=== PATIENT | female | born 1985 | race Caucasian/White ===

== ENCOUNTER 2022-06-15 19:00 | Inpatient (IN) | payer OTHER, SELFPAY ==
[2022-06-15 19:28] VITALS: BP 130/84; PULSE 65
[2022-06-15 19:29] VITALS: PULSE 63; O2SAT 97
[2022-06-15 19:50] VITALS: BP 130/84; PULSE 63; PULSE 66; RESP 16; TEMP 36.6; O2SAT 97; O2SAT 98
--- NOTE | 2022-06-15 20:42 | NUR.NOTE ---
Nursing Note: Provider at bedside to discuss plan of care. Dr. Hung Fallon
--- NOTE | 2022-06-15 20:47 | W.PM.OBHPL1 ---
Date of service: 06/15/22 Time of Service: 20:47 Assessment and Plan Assessment and plan (1) GDM (gestational diabetes mellitus), class A1: Status: Acute Assessment and plan: Misoprostol induction. 50mcg dose orally with routine monitoring. Sharyn and I discussed options of Pitocin vs Miso - she preferred miso. Will await routine admit labs Low SD risk and avg PPH risk due to multip status and hx PPH (2) Postmaturity , 40-42 weeks gestation: Status: Acute OB-HPI Labor/Delivery History of Present Illness Reason for Visit: induction Chief Complaint: Scheduled Induction of Labor Indication for Induction: Chronic Maternal Diabetes and Post Date. CINDY Calculator Estimated Delivery Date Method Current WG Current Estimate 06/21/22 Ultrasound #2 39w 1d Other Estimates 06/11/22 LMP (Certain) 40w 4d 06/12/22 Ultrasound #1 40w 3d Comments: working EDC 06/12/2022 based on LMP and early sono History of Present Expected Delivery Route/Plan Induction discussion over past week - she declined last 06/11 - today baseline 105-110 cat 1 NST in office - good finger sticks and stable BP 130's/76-84 - did agree to proceed given constellation of post dates, GDM, chandni baseline. Specific Issues/Plan This sarah reviewed, as was done in office earlier, the inc risk of or maternal issues with induction. Small risk of hyper stim, discomfort, utering tear, intolerance/FHT abnormalities/decels. she is aware that risk of C/Section increased. She has been clear re no interest in epidural. Denies VENEGAS, abd pain, visual changes 10# prior - no SD risk No prior PP hem hx, though did bleed some post SAB in 2013 and PPHem with two subsequent NSVDs Diet controlled GDM - home FS uniformly fasting <95 and PP <120 Today mild ctx - irreg, no ROM GBS neg labs per flow sheet MALA 16 last week Fetus vtx by sono in office 6 hrs ago. Good activity, no ROM, vag d/c. Narrative: as above PFSH All Active Problems (Updated 06/15/22 @ 21:12 by Alexis Boogie) Postmaturity , 40-42 weeks gestation (Acute) GDM (gestational diabetes mellitus), class A1 (Acute) Surgical History (Updated 06/15/22 @ 20:02 by Stacy Rodriguez RN) History of hernia repair Social History Smoking/Tobacco Use Status: Never Smoking risk assessment performed?: Yes Substance use type: does not use Do you feel safe at home: Yes Do you feel safe in your relationship?: Yes History History 8 Para 5 Hx # Term Pregnancies Multiple births Hx # Pregnancies Ectopic pregnancies AB induced Hx Number of Living Children AB spontaneous Meds Allergies and Home Medications Home Medications Medication Instructions Recorded Confirmed Type Unknown [No Known Home Meds] 06/15/22 06/15/22 History Exam Physical Exam Vital signs: Temp Pulse Resp BP Pulse Ox 36.6 C 63 16 130/84 97 06/15/22 19:50 06/15/22 19:50 06/15/22 19:50 06/15/22 19:50 06/15/22 19:50 Detailed Labor and Delivery Exam Dilation: 1 Effacement (%): 50 station: -2 Position: OA Cervix position: anterior Consistency: soft Park Score: Cervical Points Exam 0 1 2 3 Dilation Closed 1-2cm 3-4 cm 5-6cm Effacement 0-30% 40-50% 60-70% 80% Consistency Firm Medium Soft Station -3 -2 -1,0 +1,+2 Position Posterior Mid Anterior PARK Score(Cervical Ripeness Score): 7 Amniotic Membrane Status: Intact Contraction Frequency(min): 10-12 Contraction Intensity: Mild Fetus A Heart Rate Baseline: 105 Monitor Accelerations: 15 X 15 Monitor Decelerations: None Variability: Moderate (6-25 BPM) Presentation: Vertex Categories: Category I Est. Weight: 3900 kg Additional findings Additional findings: Lungs - clear CVS - reg, no murmur Fundal Ht - 40 cm ABD - soft, non-tender no masses - gravid uterus Risk Assessment Risk for Shoulder Dystocia Increased Risk?: No Risk for Post- Hemorrhage At Risk?: Yes Interventions: iron Date/Initials: [facility] [place] 06/15 Risks Reviewed Risks Reviewed Upon Admission: Yes
[2022-06-15] MEDS: miSOPROStol 50 MCG TAB (20:56)
[2022-06-15] MEDS: Normal Saline Flush 10 ML SYR (20:56)
[2022-06-15 21:05] LABS: Source Nasal/Nares
[2022-06-15 21:08] LABS: HCT 35.5 % (36.0-46.0); HGB 11.5 g/dL (11.2-15.7); MCH 25.2 pg (27.0-33.0); MCHC 32.4 % (32.0-36.0); MCV 78 fL (80-95); MPV 12.3 fL (8.0-11.0); Platelet Count 171 10^3/uL (130-400); RBC 4.56 10^6/uL (3.93-5.22); RDW 14.5 % (11.7-14.6); WBC 8.92 10^3/uL (4.4-10.8)
--- NOTE | 2022-06-15 21:18 | NUR.NOTE ---
Nursing Note: Saline lock placed in Right wrist number 18. Dry intact, flushes well
[2022-06-15] MEDS: Acetaminophen 500 MG TAB PO (21:39)
[2022-06-15 21:40] LABS: COVID-19 PCR Negative (Negative)
--- NOTE | 2022-06-15 22:34 | PGE_ITS ---
Date of service: 06/15/22 Time of Service: 22:34 Pelvic Exam Comments: not rechecked Contractions Contraction Frequency(min): q10 Intensity: Mild/Moderate Objective Abnormal lab results 06/15/22 Range/Units 20:57 Hct 35.5 L (36.0-46.0) % MCV 78 L (80-95) fL MCH 25.2 L (27.0-33.0) pg MPV 12.3 H (8.0-11.0) fL Temp Pulse Resp BP Pulse Ox 36.6 C 63 16 130/84 97 06/15/22 19:50 06/15/22 19:50 06/15/22 19:50 06/15/22 19:50 06/15/22 19:50 Laboratory Results WBC 8.92 10^3/uL (4.4-10.8) 06/15/22 20:57 RBC 4.56 10^6/uL (3.93-5.22) 06/15/22 20:57 Hgb 11.5 g/dL (11.2-15.7) 06/15/22 20:57 Hct 35.5 % (36.0-46.0) L 06/15/22 20:57 MCV 78 fL (80-95) L 06/15/22 20:57 MCH 25.2 pg (27.0-33.0) L 06/15/22 20:57 MCHC 32.4 % (32.0-36.0) 06/15/22 20:57 RDW 14.5 % (11.7-14.6) 06/15/22 20:57 Plt Count 171 10^3/uL (130-400) 06/15/22 20:57 MPV 12.3 fL (8.0-11.0) H 06/15/22 20:57 COVID-19 Source Nasal/Nares 06/15/22 20:52 SARS-CoV-2 (PCR) Negative (Negative) 06/15/22 20:52 Patient ABO/Rh B Negative 06/15/22 20:57 Antibody Screen POSITIVE 06/15/22 20:57 Antibody Identification Anti-D 06/15/22 20:57 Objective Narrative Objective Narrative: comfortable non-tender uterus Subjective Interval history since last seen: Just had solid ctx - feeling some pressure on cervix and entire uterus getting firm. No VENEGAS, visual changes, ROM. Good Fmvt FHT - mod variability, baseline ~120-110 Results Hemoglobin/Hematocrit: Hgb 11.5 g/dL (11.2-15.7) 06/15/22 20:57 Hct 35.5 % (36.0-46.0) L 06/15/22 20:57 Abnormal Lab Findings: Abnormal Labs 06/15/22 20:57 Hct 35.5 L MCV 78 L MCH 25.2 L MPV 12.3 H Additional Findings Results: Cont current miso dose. allow snooze/rest/sleep if no labor. Move to [facility] - pt thinking 0400 AM if no labor. Routing vitals/doptones post miso monitoring.
[2022-06-16] VITALS (185 sets, daily range): BP systolic 114–131; BP diastolic 65–88; PULSE 0–125; RESP 16; TEMP 36.6–36.8; O2SAT 97
--- NOTE | 2022-06-16 00:57 | NUR.NOTE ---
Nursing Note: Pt may be off monitor post 2 hours Miso. ENocuraged to sleep and MD will check in by [address] Sachin Fallon
--- NOTE | 2022-06-16 02:02 | NUR.NOTE ---
Pt to be placed on monitor at 0400 in prep to discuss plan of care and use of pitocin to continue IOL prt Dr. Fallon Nursing Note:
--- NOTE | 2022-06-16 04:41 | W.PM.OBNL1 ---
Date of service: 06/16/22 Time of Service: 04:41 Contractions Monitor Mode: External Contraction Frequency(min): 6-8 Contraction Duration(sec): 45 Intensity: Moderate Fetus A Monitor: External (US) Heart Rate Baseline: 120 Presentation: Vertex Variability: Moderate (6-25 BPM) Categories: Category I Decelerations: None Objective Abnormal lab results 06/15/22 Range/Units 20:57 Hct 35.5 L (36.0-46.0) % MCV 78 L (80-95) fL MCH 25.2 L (27.0-33.0) pg MPV 12.3 H (8.0-11.0) fL Temp Pulse Resp BP Pulse Ox 36.7 C 75 16 121/80 97 06/16/22 04:09 06/16/22 04:09 06/15/22 19:50 06/16/22 04:09 06/15/22 19:50 Laboratory Results WBC 8.92 10^3/uL (4.4-10.8) 06/15/22 20:57 RBC 4.56 10^6/uL (3.93-5.22) 06/15/22 20:57 Hgb 11.5 g/dL (11.2-15.7) 06/15/22 20:57 Hct 35.5 % (36.0-46.0) L 06/15/22 20:57 MCV 78 fL (80-95) L 06/15/22 20:57 MCH 25.2 pg (27.0-33.0) L 06/15/22 20:57 MCHC 32.4 % (32.0-36.0) 06/15/22 20:57 RDW 14.5 % (11.7-14.6) 06/15/22 20:57 Plt Count 171 10^3/uL (130-400) 06/15/22 20:57 MPV 12.3 fL (8.0-11.0) H 06/15/22 20:57 COVID-19 Source Nasal/Nares 06/15/22 20:52 SARS-CoV-2 (PCR) Negative (Negative) 06/15/22 20:52 Patient ABO/Rh B Negative 06/15/22 20:57 Antibody Screen POSITIVE 06/15/22 20:57 Antibody Identification Anti-D 06/15/22 20:57 Subjective Interval history since last seen: Slept some, ctx consistently Q6-8. mvmt, no ROM No VENEGAS, visual changes BP stable FHT - baseline 120's, mod variability, accels Discussion re options of second miso dose vs transitioning to pitocin Sharyn prefers pitocin given mild/mod ctx pattern and minimal effect from first miso dose. She is aware of small risks with pit including hyperstim, uterine separation, FHT decels, c/section. Plan: low dose pitocin with routine monitoring. Expect Be on alert for PPHEM: IV in place, active mgmt third stage labor, adequate H/H. Plan to recheck cervix shortly. S. Genereaux Results Hemoglobin/Hematocrit: Hgb 11.5 g/dL (11.2-15.7) 06/15/22 20:57 Hct 35.5 % (36.0-46.0) L 06/15/22 20:57 Abnormal Lab Findings: Abnormal Labs 06/15/22 20:57 Hct 35.5 L MCV 78 L MCH 25.2 L MPV 12.3 H Additional Findings Results: as above
[2022-06-16] MEDS: Lactated Ringers 1,000 ML 125 ML IV ×3 (04:51→21:31)
[2022-06-16] MEDS: Oxytocin/Normal Saline 30 UNIT/500 ML BAG 2 UNITS IV (04:53)
[2022-06-16] MEDS: Normal Saline Flush 10 ML SYR IVP (04:57)
--- NOTE | 2022-06-16 05:06 | W.PM.OBNL1 ---
Date of service: 06/16/22 Time of Service: 05:06 Pelvic Exam Dilation: 1 Effacement (%): 50 station: -2 Position: OA Cervix Position: anterior Consistency: soft Vaginal Exam Presentation: Vertex Objective Abnormal lab results 06/15/22 Range/Units 20:57 Hct 35.5 L (36.0-46.0) % MCV 78 L (80-95) fL MCH 25.2 L (27.0-33.0) pg MPV 12.3 H (8.0-11.0) fL Temp Pulse Resp BP Pulse Ox 36.7 C 75 16 121/80 97 06/16/22 04:09 06/16/22 04:09 06/15/22 19:50 06/16/22 04:09 06/15/22 19:50 Laboratory Results WBC 8.92 10^3/uL (4.4-10.8) 06/15/22 20:57 RBC 4.56 10^6/uL (3.93-5.22) 06/15/22 20:57 Hgb 11.5 g/dL (11.2-15.7) 06/15/22 20:57 Hct 35.5 % (36.0-46.0) L 06/15/22 20:57 MCV 78 fL (80-95) L 06/15/22 20:57 MCH 25.2 pg (27.0-33.0) L 06/15/22 20:57 MCHC 32.4 % (32.0-36.0) 06/15/22 20:57 RDW 14.5 % (11.7-14.6) 06/15/22 20:57 Plt Count 171 10^3/uL (130-400) 06/15/22 20:57 MPV 12.3 fL (8.0-11.0) H 06/15/22 20:57 COVID-19 Source Nasal/Nares 06/15/22 20:52 SARS-CoV-2 (PCR) Negative (Negative) 06/15/22 20:52 Patient ABO/Rh B Negative 06/15/22 20:57 Antibody Screen POSITIVE 06/15/22 20:57 Antibody Identification Anti-D 06/15/22 20:57 Results Hemoglobin/Hematocrit: Hgb 11.5 g/dL (11.2-15.7) 06/15/22 20:57 Hct 35.5 % (36.0-46.0) L 06/15/22 20:57 Abnormal Lab Findings: Abnormal Labs 06/15/22 20:57 Hct 35.5 L MCV 78 L MCH 25.2 L MPV 12.3 H Additional Findings Results: Cervical exam unchanged vs admission Cat 1 NST CTX strong, last 60 min cont pitocin per protocol Enrique Boogie
--- NOTE | 2022-06-16 06:32 | W.PM.OBNL1 ---
Date of service: 06/16/22 Time of Service: 06:32 Objective Abnormal lab results 06/15/22 Range/Units 20:57 Hct 35.5 L (36.0-46.0) % MCV 78 L (80-95) fL MCH 25.2 L (27.0-33.0) pg MPV 12.3 H (8.0-11.0) fL Temp Pulse Resp BP Pulse Ox 36.7 C 75 16 121/80 97 06/16/22 04:09 06/16/22 04:09 06/15/22 19:50 06/16/22 04:09 06/15/22 19:50 Laboratory Results WBC 8.92 10^3/uL (4.4-10.8) 06/15/22 20:57 RBC 4.56 10^6/uL (3.93-5.22) 06/15/22 20:57 Hgb 11.5 g/dL (11.2-15.7) 06/15/22 20:57 Hct 35.5 % (36.0-46.0) L 06/15/22 20:57 MCV 78 fL (80-95) L 06/15/22 20:57 MCH 25.2 pg (27.0-33.0) L 06/15/22 20:57 MCHC 32.4 % (32.0-36.0) 06/15/22 20:57 RDW 14.5 % (11.7-14.6) 06/15/22 20:57 Plt Count 171 10^3/uL (130-400) 06/15/22 20:57 MPV 12.3 fL (8.0-11.0) H 06/15/22 20:57 COVID-19 Source Nasal/Nares 06/15/22 20:52 SARS-CoV-2 (PCR) Negative (Negative) 06/15/22 20:52 Patient ABO/Rh B Negative 06/15/22 20:57 Antibody Screen POSITIVE 06/15/22 20:57 Antibody Identification Anti-D 06/15/22 20:57 Subjective Interval history since last seen: CTX closer - good 60 sec duration FHT - no decels, mod variability, accels noted Eating bkfst, husb here, feeling good. No VENEGAS, good stable BP Uterus palpates strong A: Maternal and well being Induction off to good start - toerating pit so far P: Cont pit - dose to 6 just now Expect S. Genereaux Results Hemoglobin/Hematocrit: Hgb 11.5 g/dL (11.2-15.7) 06/15/22 20:57 Hct 35.5 % (36.0-46.0) L 06/15/22 20:57 Abnormal Lab Findings: Abnormal Labs 06/15/22 20:57 Hct 35.5 L MCV 78 L MCH 25.2 L MPV 12.3 H
--- NOTE | 2022-06-16 06:40 | NUR.NOTE ---
Nursing Note: Blood sugar [address] Fallon request.
--- NOTE | 2022-06-16 15:08 | W.PM.OBNL1 ---
Date of service: 06/16/22 Time of Service: 12:30 Informed Consent Informed Consent: Induction of Labor Pelvic Exam station: -3 Cervix Position: posterior Consistency: soft Vaginal Exam Presentation: Vertex Contractions Monitor Mode: External Contraction Frequency(min): 3 Contraction Duration(sec): 60 Intensity: Moderate Fetus A Monitor: External (US) Heart Rate Baseline: 120 Presentation: Vertex Variability: Moderate (6-25 BPM) Categories: Category I FHR Rhythm: Regular Characteristics: Normal Accelerations: 15 X 15 Decelerations: None Amniotic Membrane Status: Intact Assessment and Plan Assessment and plan (1) Postmaturity , 40-42 weeks gestation: Status: Acute Assessment and plan: Sharyn is now on 16u pitocin, and contractions have increased in intensity. Unfortunately, I cannot reach her cervix which is still quite posterior. She declines AROM. Possible OP baby based on recent contraction pattern. Discussed hands and knees and side lying with frequent position changes. Will continue to increase pit as tolerated. FHT category 1. (2) GDM (gestational diabetes mellitus), class A1: Status: Acute Objective Abnormal lab results 06/15/22 Range/Units 20:57 Hct 35.5 L (36.0-46.0) % MCV 78 L (80-95) fL MCH 25.2 L (27.0-33.0) pg MPV 12.3 H (8.0-11.0) fL Temp Pulse Resp BP Pulse Ox 36.6 C 66 16 125/85 97 06/16/22 12:25 06/16/22 15:06 06/16/22 12:25 06/16/22 14:40 06/16/22 07:28 Laboratory Results WBC 8.92 10^3/uL (4.4-10.8) 06/15/22 20:57 RBC 4.56 10^6/uL (3.93-5.22) 06/15/22 20:57 Hgb 11.5 g/dL (11.2-15.7) 06/15/22 20:57 Hct 35.5 % (36.0-46.0) L 06/15/22 20:57 MCV 78 fL (80-95) L 06/15/22 20:57 MCH 25.2 pg (27.0-33.0) L 06/15/22 20:57 MCHC 32.4 % (32.0-36.0) 06/15/22 20:57 RDW 14.5 % (11.7-14.6) 06/15/22 20:57 Plt Count 171 10^3/uL (130-400) 06/15/22 20:57 MPV 12.3 fL (8.0-11.0) H 06/15/22 20:57 COVID-19 Source Nasal/Nares 06/15/22 20:52 SARS-CoV-2 (PCR) Negative (Negative) 06/15/22 20:52 Patient ABO/Rh B Negative 06/15/22 20:57 Antibody Screen POSITIVE 06/15/22 20:57 Antibody Identification Anti-D 06/15/22 20:57 Vital Signs Reviewed: Yes Subjective Patient Reports: No new Complaints Interval history since last seen: Contractions becoming more intense. Feels baby is well applied. Results Hemoglobin/Hematocrit: Hgb 11.5 g/dL (11.2-15.7) 06/15/22 20:57 Hct 35.5 % (36.0-46.0) L 06/15/22 20:57 Abnormal Lab Findings: Abnormal Labs 06/15/22 20:57 Hct 35.5 L MCV 78 L MCH 25.2 L MPV 12.3 H
--- NOTE | 2022-06-16 15:52 | W.PM.OBNL1 ---
Date of service: 06/16/22 Time of Service: 15:52 Informed Consent Informed Consent: Induction of Labor Pelvic Exam Dilation: 5 Effacement (%): 40 station: -3 Cervix Position: mid Consistency: soft Vaginal Exam Presentation: Vertex Contractions Monitor Mode: External Contraction Frequency(min): 3 Contraction Duration(sec): 60 Intensity: Moderate Fetus A Monitor: External (US) Heart Rate Baseline: 130 Presentation: Vertex Variability: Moderate (6-25 BPM) Categories: Category I FHR Rhythm: Regular Characteristics: Normal Accelerations: 15 X 15 Decelerations: None Amniotic Membrane Status: Intact Assessment Note: No clear SROM but felt no bulging bag, possibly felt hair Assessment and Plan Assessment and plan (1) Postmaturity , 40-42 weeks gestation: Status: Acute Assessment and plan: Doing well, progressed to 40/-3 now. Pitocin on . Good contraction pattern. Will continue as we are for another couple of hours, then consider a break from pitocin for a rest and dinner. Can then restart pitocin unless she is montez on her own. FHT category 1. (2) GDM (gestational diabetes mellitus), class A1: Status: Acute Objective Abnormal lab results 06/15/22 Range/Units 20:57 Hct 35.5 L (36.0-46.0) % MCV 78 L (80-95) fL MCH 25.2 L (27.0-33.0) pg MPV 12.3 H (8.0-11.0) fL Temp Pulse Resp BP Pulse Ox 36.6 C 77 16 125/85 97 06/16/22 12:25 06/16/22 15:50 06/16/22 12:25 06/16/22 14:40 06/16/22 07:28 Laboratory Results WBC 8.92 10^3/uL (4.4-10.8) 06/15/22 20:57 RBC 4.56 10^6/uL (3.93-5.22) 06/15/22 20:57 Hgb 11.5 g/dL (11.2-15.7) 06/15/22 20:57 Hct 35.5 % (36.0-46.0) L 06/15/22 20:57 MCV 78 fL (80-95) L 06/15/22 20:57 MCH 25.2 pg (27.0-33.0) L 06/15/22 20:57 MCHC 32.4 % (32.0-36.0) 06/15/22 20:57 RDW 14.5 % (11.7-14.6) 06/15/22 20:57 Plt Count 171 10^3/uL (130-400) 06/15/22 20:57 MPV 12.3 fL (8.0-11.0) H 06/15/22 20:57 COVID-19 Source Nasal/Nares 06/15/22 20:52 SARS-CoV-2 (PCR) Negative (Negative) 06/15/22 20:52 Patient ABO/Rh B Negative 06/15/22 20:57 Antibody Screen POSITIVE 06/15/22 20:57 Antibody Identification Anti-D 06/15/22 20:57 Vital Signs Reviewed: Yes Subjective Patient Reports: No new Complaints Interval history since last seen: Still with moderate contractions, moving frequently. Results Hemoglobin/Hematocrit: Hgb 11.5 g/dL (11.2-15.7) 06/15/22 20:57 Hct 35.5 % (36.0-46.0) L 06/15/22 20:57 Abnormal Lab Findings: Abnormal Labs 06/15/22 20:57 Hct 35.5 L MCV 78 L MCH 25.2 L MPV 12.3 H
--- NOTE | 2022-06-16 19:09 | W.PM.OBNL1 ---
Date of service: 06/16/22 Time of Service: 19:09 Informed Consent Informed Consent: Induction of Labor Contractions Monitor Mode: Palpation Contraction Frequency(min): 20 Intensity: Mild/Moderate Fetus A Monitor: Doppler Assessment and Plan Assessment and plan (1) Postmaturity , 40-42 weeks gestation: Status: Acute Assessment and plan: Contractions are rare with pitocin off, stopped at 6pm. Will restart at about 8pm. She declined cervical exam at this time. Off monitor while pitocin is off. FHT has been Cat 1 throughout. (2) GDM (gestational diabetes mellitus), class A1: Status: Acute Objective Abnormal lab results 06/15/22 Range/Units 20:57 Hct 35.5 L (36.0-46.0) % MCV 78 L (80-95) fL MCH 25.2 L (27.0-33.0) pg MPV 12.3 H (8.0-11.0) fL Temp Pulse Resp BP Pulse Ox 36.7 C 76 16 130/82 97 06/16/22 17:56 06/16/22 17:58 06/16/22 17:56 06/16/22 17:56 06/16/22 07:28 Laboratory Results WBC 8.92 10^3/uL (4.4-10.8) 06/15/22 20:57 RBC 4.56 10^6/uL (3.93-5.22) 06/15/22 20:57 Hgb 11.5 g/dL (11.2-15.7) 06/15/22 20:57 Hct 35.5 % (36.0-46.0) L 06/15/22 20:57 MCV 78 fL (80-95) L 06/15/22 20:57 MCH 25.2 pg (27.0-33.0) L 06/15/22 20:57 MCHC 32.4 % (32.0-36.0) 06/15/22 20:57 RDW 14.5 % (11.7-14.6) 06/15/22 20:57 Plt Count 171 10^3/uL (130-400) 06/15/22 20:57 MPV 12.3 fL (8.0-11.0) H 06/15/22 20:57 COVID-19 Source Nasal/Nares 06/15/22 20:52 SARS-CoV-2 (PCR) Negative (Negative) 06/15/22 20:52 Patient ABO/Rh B Negative 06/15/22 20:57 Antibody Screen POSITIVE 06/15/22 20:57 Antibody Identification Anti-D 06/15/22 20:57 Vital Signs Reviewed: Yes Subjective Patient Reports: No new Complaints Results Hemoglobin/Hematocrit: Hgb 11.5 g/dL (11.2-15.7) 06/15/22 20:57 Hct 35.5 % (36.0-46.0) L 06/15/22 20:57 Abnormal Lab Findings: Abnormal Labs 06/15/22 20:57 Hct 35.5 L MCV 78 L MCH 25.2 L MPV 12.3 H
[2022-06-16] MEDS: Calcium Carbonate *TUMS* 500 MG CHEW 1000 MG PO (19:17)
--- NOTE | 2022-06-16 21:13 | W.PM.OBNL1 ---
Date of service: 06/16/22 Time of Service: 21:13 Informed Consent Informed Consent: Induction of Labor Objective Temp Pulse Resp BP Pulse Ox 36.7 C 61 16 116/71 97 06/16/22 19:11 06/16/22 21:09 06/16/22 19:11 06/16/22 21:09 06/16/22 19:11 Laboratory Results WBC 8.92 10^3/uL (4.4-10.8) 06/15/22 20:57 RBC 4.56 10^6/uL (3.93-5.22) 06/15/22 20:57 Hgb 11.5 g/dL (11.2-15.7) 06/15/22 20:57 Hct 35.5 % (36.0-46.0) L 06/15/22 20:57 MCV 78 fL (80-95) L 06/15/22 20:57 MCH 25.2 pg (27.0-33.0) L 06/15/22 20:57 MCHC 32.4 % (32.0-36.0) 06/15/22 20:57 RDW 14.5 % (11.7-14.6) 06/15/22 20:57 Plt Count 171 10^3/uL (130-400) 06/15/22 20:57 MPV 12.3 fL (8.0-11.0) H 06/15/22 20:57 COVID-19 Source Nasal/Nares 06/15/22 20:52 SARS-CoV-2 (PCR) Negative (Negative) 06/15/22 20:52 Patient ABO/Rh B Negative 06/15/22 20:57 Antibody Screen POSITIVE 06/15/22 20:57 Antibody Identification Anti-D 06/15/22 20:57 Subjective Interval history since last seen: Pit dose ramping up post 2 hr rest at supper time Resting/comfortable No VENEGAS, visual changes BP's good - stable Palpates strong - freq of ctx increasing as expected She declines cervical check - reasonable given lack of ctx over the past 2 hrs break A: Maternal and well being P: cont induction - inc pit per protocol with goal - adequate ctx q 2-3 min Expect PP Hemm risk - based on hx. S. Genereaux Results Hemoglobin/Hematocrit: Hgb 11.5 g/dL (11.2-15.7) 06/15/22 20:57 Hct 35.5 % (36.0-46.0) L 06/15/22 20:57 Abnormal Lab Findings: Abnormal Labs 06/15/22 20:57 Hct 35.5 L MCV 78 L MCH 25.2 L MPV 12.3 H
[2022-06-17] VITALS (113 sets, daily range): BP systolic 100–123; BP diastolic 56–83; PULSE 50–91; RESP 16; TEMP 36.8–37; O2SAT 90–100; BMI 34.9
--- NOTE | 2022-06-17 01:42 | ANES.PREOP_ITS ---
General Info Date of Service Date Performed: 06/17/22 Height: 5 ft 8 in Weight: 104.326 kg Body Mass Index (BMI): 34.9 Meds Allergies and Home Medications Home Medication Medication Instructions Recorded Unknown [No Known Home Meds] 06/15/22 Current Visit Medications: Current Medications Generic Name Dose Route Start Last Admin Trade Name Freq PRN Reason Stop Dose Admin Acetaminophen 500 mg 06/15/22 21:33 06/15/22 21:39 Acetaminophen 500 Mg Tab PO 500 mg Q4H PRN PRN Administration Citric Acid/Sodium Citrate 30 ml 06/17/22 02:00 Sodium Citrate 30 Ml Cup PO PREOP GIANNI Ringer's Solution 1,000 mls @ 200 mls/hr 06/15/22 20:45 IV INFUSION GIANNI Sodium Chloride 500 mls @ 0 mls/hr 06/15/22 20:42 Saline 500ml Bag IV PRN PRN As Directed Ringer's Solution 1,000 mls @ 125 mls/hr 06/16/22 04:45 06/16/22 21:31 IV 125 mls/hr INFUSION GIANNI Administration Oxytocin/Sodium Chloride 30 unit in 500 mls @ 2 mls/hr 06/16/22 04:45 0 06/17/22 00:45 Pitocin/Normal Saline IV 0 milliunits/min INFUSION GIANNI 0 mls/hr Titration Protocol 2 MILLIUNITS/MIN Ringer's Solution 1,000 mls @ 200 mls/hr 06/17/22 01:45 IV INFUSION GIANNI Azithromycin 500 mg/ Sodium 250 mls @ 250 mls/hr 06/17/22 01:45 Chloride IVPB PREOP GIANNI Cefazolin Sodium/Dextrose 2 gm in 50 mls @ 100 mls/hr 06/17/22 01:45 Ancef Duplex IVPB PREOP GIANNI IV Miscellaneous Supplies 1 each 06/15/22 20:45 Iv Access IV DIRECTED GIANNI Sodium Chloride 0 ml 06/15/22 20:42 06/16/22 04:57 Normal Saline Flush 10 Ml Syr IVP 10 ml PRN PRN Administration Terbutaline Sulfate 0.25 mg 06/15/22 20:42 Terbutaline 1 Mg/Ml Vial SC PRN PRN PFSH Active Problems Active Problems: Problem Status Onset Code Postmaturity , 40-42 weeks gestation O48.0 GDM (gestational diabetes mellitus), class A1 O24.410 Surgical History Surgical History (Updated 06/15/22 @ 20:02 by Stacy Rodriguez RN) History of hernia repair Tobacco Smoking/Tobacco Use Status: Never Substance Use Substance use type: does not use Prental History History 8 Para 5 Hx # Term Pregnancies Multiple births Hx # Pregnancies Ectopic pregnancies AB induced Hx Number of Living Children AB spontaneous Vital Signs and Lab Results Vital Signs Most Recent Vital Signs in EMR: Most Recent Vital Signs Temp Pulse Resp BP Pulse Ox 36.8 C 64 16 123/83 97 06/16/22 23:04 06/17/22 01:41 06/16/22 19:11 06/17/22 01:19 06/16/22 19:11 Point of Care Results Point of Care Results: Finger Stick Blood Glucose 113 06/16/22 06:37 Lab Results 06/15/22 20:57 Blood Type / Crossmatch: Patient ABO/Rh B Negative 06/15/22 Antibody Screen POSITIVE 06/15/22 Complete Blood Count: White Blood Count 8.92 10^3/uL (4.4-10.8) 06/15/22 20:57 Red Blood Count 4.56 10^6/uL (3.93-5.22) 06/15/22 20:57 Hemoglobin 11.5 g/dL (11.2-15.7) 06/15/22 20:57 Hematocrit 35.5 % (36.0-46.0) L 06/15/22 20:57 Platelet Count 171 10^3/uL (130-400) 06/15/22 20:57 Complete Metabolic Panel: No Data to Display Liver Function Panel: No Data to Display Coagulation Panel: No Data to Display Cardiac Panel: No Data to Display Arterial Blood Gas: No Data to Display Venous Blood Gas: No Data to Display Pancreas Panel: No Data to Display Thyroid Panel: No Data to Display Infectious Disease: Coronavirus (COVID-19)(PCR) Negative (Negative) 06/15/22 20:52 Coronavirus 2019 Source Nasal/Nares 06/15/22 20:52 Blood Cultures: No Data to Display Toxicology Panel: No Data to Display Panel: No Data to Display Anesthesia Assessment and Plan Anesthesia History Personal History: No History of Anesthesia Complications Family History: No Family History of Anesthesia Complications Exercise Tolerance Exercise Tolerance: Metabolic Equivalents>4 Pertinent Negatives Pertinent Negatives: No Major Cardiovascular Symptoms or Complaints, No Major Pulmonary Symptoms or Complaints and No History of CVA/TIA Cardiac & Pulmonary Exam Cardiac Exam: Normal S1/S2 Heart Sounds Pulmonary Exam: Clear Bilateral Breath Sounds Implantable Cardiac Device Does patient have a Pacemaker or an ICD?: No Airway Exam Known Difficult Airway: No Mallampati Class: 2 Mouth Opening: Normal (> 3cm) Thyromental Distance: Greater than 3 cm Neck Range of Motion: Full ROM Neck Circumference: Normal Teeth Condition: Normal Dentition ASA Classification ASA Score: ASA 2 Emergency Case?: Yes NPO Status NPO Status: Full Stomach Status Status: Confirmed Anesthesia Plan Resuscitation Status: Full Code Anesthesia Technique: Spinal Anesthesia Airway Planned: Natural Airway Monitors Used: Standard Monitors Preoperative Comments:: Initially STAT for section due to Bradycardia, Estefania Lowry patient with Dr. Coronado. Patient and baby doing better now, FHR no longer in 60s. Discussing plan of spinal as primary with GETA as secondary. History of epidural in the past, which patient reported took a long time to set up.
--- NOTE | 2022-06-17 01:48 | W.PM.OBNL1 ---
Date of service: 06/17/22 Time of Service: 01:48 Informed Consent Informed Consent: Induction of Labor Objective Temp Pulse Resp BP Pulse Ox 36.8 C 59 L 16 123/83 97 06/16/22 23:04 06/17/22 01:45 06/16/22 19:11 06/17/22 01:19 06/16/22 19:11 Laboratory Results WBC 8.92 10^3/uL (4.4-10.8) 06/15/22 20:57 RBC 4.56 10^6/uL (3.93-5.22) 06/15/22 20:57 Hgb 11.5 g/dL (11.2-15.7) 06/15/22 20:57 Hct 35.5 % (36.0-46.0) L 06/15/22 20:57 MCV 78 fL (80-95) L 06/15/22 20:57 MCH 25.2 pg (27.0-33.0) L 06/15/22 20:57 MCHC 32.4 % (32.0-36.0) 06/15/22 20:57 RDW 14.5 % (11.7-14.6) 06/15/22 20:57 Plt Count 171 10^3/uL (130-400) 06/15/22 20:57 MPV 12.3 fL (8.0-11.0) H 06/15/22 20:57 COVID-19 Source Nasal/Nares 06/15/22 20:52 SARS-CoV-2 (PCR) Negative (Negative) 06/15/22 20:52 Patient ABO/Rh B Negative 06/15/22 20:57 Antibody Screen POSITIVE 06/15/22 20:57 Antibody Identification Anti-D 06/15/22 20:57 Subjective Interval history since last seen: Summary of past ~ hour SROM clear, copious ~0015 with subsequent decels. Position changes and O2 initiated. SVE @ ~00:45 - identified elbow as presenting part with vtx behind. arm and upper humerus trapped by cervix. No pulsatile cord structures identified. Pitocin d/cd which allowed ctx to space and reduced the depth of the decels. I shared the inability of arm and head to deliver simultaneously and shared the need for c/section. Janusz and Sharyn upset by this news. Bed expressed 'I'm angry' and walked out of the room. He said he felt the induction decision 06/15 was premature and unnecessary - 'her blood sugar was low in the office, when it was normal the heart rate has been normal'. Sharyn and Deborah asked re possible reduction of the arm. she tried to get on all 4's and jiggled her butt trying to coax fetus cephelad in effort to dislodge the arm. Dr. Ross confirmed the arm presentation and reinforced the lack of Vaginal delivery options. Decels persisted with each ctx - appeared to be lates with decrease in variability. A: arm presentation heart rate abnormalities/decels P: C/section Consent reviewed and freely signed by Sharyn. Anes options explored - regional is preferred over general. S. Genereaux Results Hemoglobin/Hematocrit: Hgb 11.5 g/dL (11.2-15.7) 06/15/22 20:57 Hct 35.5 % (36.0-46.0) L 06/15/22 20:57 Abnormal Lab Findings: Abnormal Labs 06/15/22 20:57 Hct 35.5 L MCV 78 L MCH 25.2 L MPV 12.3 H
[2022-06-17] MEDS: AZITHROMYCIN 500 MG in Normal Saline 250 ML 250 MG IVPB (01:52)
[2022-06-17] MEDS: Sodium Citrate 30 ML CUP PO (01:54)
[2022-06-17] MEDS: ceFAZolin 2 GM/50 ML BAG IVPB (02:22)
--- NOTE | 2022-06-17 03:34 | PDOC.OPNB_ITS ---
Date of service: 06/17/22 Time of Service: 14:30 Operative Note Operative Note Delivery Method: Unscheduled STAT: No and Primary NTSV>37 Weeks: No DATE OF PROCEDURE: 06/17/22 PRE-OP DIAGNOSES: Compound presentation POST-OP DIAGNOSES: same Transverse lie back down PROCEDURE: PLTCS SURGEON: Marichuy Ross Police Crime Scene Technician: Gavin Alford Anesthesia: spinal Estimated blood loss (mL): 800 Patient was transported to: floor Patient's condition: stable Indications: Pt presented for post-dates induction and progressed to 5cm, then underwent SROM with a large amount of fluid and was found to have compound presentation with the baby's arm over it's head. The situation was discussed with the patient. I did not feel that reduction of the arm was feasible given it's position and concern for cord prolapse. Findings: At time of the vaginal prep the baby's hand could be seen in the vagina. On en trance to the uterus the baby was found in transverse presentation with the back down. The uterus had an abnormally thickened vertical band midline down into the lower uterine segment. The uterus was not thinned out at all. Procedure Description: After informed consent was signed the patient was taken to the operating room. She was given spinal anesthesia, SCDs were placed on her legs and a geller catheter was introduced into her bladder. The heart rate was checked and was normal. She underwent abdominal and vaginal prep and was draped in the dorsal supine position with a leftward tilt. During the vaginal prep the baby's hand was visualized in the vagina. The patient was tested and spinal anesthesia was found to be adequate. A time out was performed. A skin incision was made with the scalpel and carried down to the underlying layer of fascia with blunt dissection. The fascia was incised on either side of the midline and the fascial incision extended laterally with a combination of sharp and blunt dissection. The inferior edge of the fascia was grasped with carlos enrique clamps and tented up and dissected down with a combination of sharp and blunt dissection. Then the superior edge of the fascial incision was grasped with carlos enrique clamps and tented up and dissected down with a combination of sharp and blunt dissection. The rectus muscles were in the midline and the peritoneum was entered bluntly. The peritoneal incision was extended laterally with blunt dissection. The bladder blade was inserted. The uterus was noted to have a thickened band down the middle. A transverse incision was made in the lower uterine segment with the scalpel. The incision was extended superiorly and inferiorly with blunt pressure and sharp dissection. The baby was noted to be transverse, with it's head to the maternal left, back down, with a hand in the vagina. The arm was rotated back into the uterine cavity. Next attempts were made to turn the baby vertex and then to turn the baby breech. The arm slipped back into the cervix and had to be brought back into the uterine cavity again. Further attempts were made to turn the baby breech. The left leg was grasped and brought to the uterine incision followed by the right leg and the breech was delivered followed by the torso. The arms were rotated internally and delivery and the head was delivered in a flexed position. The cord was milked toward the baby quickly, then clamped x2 and cut. The baby was handed to the family physican. The placenta delivered with fundal massage and gentle cord traction and appeared to be intact. The uterus was exteriorized and cleared of clots and debris. The uterine incision was closed with 0-vicryl in a running locked fashion with a second layer of suture imbricating the first. 2 figure of eight sutures were placed in the center of the incision for excellent hemostasis. The uterus was placed back into the abdominal cavity. Clots were cleared from the peritoneal cavity with lap sponges. The incision was inspected once again and good hemostasis was noted. There was good hemostasis of the rectus muscles. The fascia was closed with 0- vicryl in a running unlocked fashion. The subcuticular layer was irrigated. The skin was closed with 4-0 vicryl in a running subcuticular fashion. The incision was cleaned. Mastisol and steristrips were placed. A dressing was placed. The fundus was palpated to be firm. The patient was moved to the stretcher and taken to the recovery room in stable condition. [place] [facility] Infant Gender: Male weight: 7 lb 2.24 oz
--- NOTE | 2022-06-17 03:43 | W.ANESPOSTOP ---
Postoperative Evaluation Date, Time and Location Date Performed: 06/17/22 Time Performed: 03:43 Patient Location: Obstetrics Vital Signs Most Recent Imported Vital Signs: Most Recent Vital Signs Temp Pulse Resp BP Pulse Ox 36.8 C 63 16 108/63 94 06/17/22 03:25 06/17/22 03:39 06/17/22 03:25 06/17/22 03:38 06/17/22 03:39 Pain Score Most Recent Pain Score: Most Recent Pain Score Pain Level [Head] 0 06/16/22 19:11 Pain Level 3 06/15/22 21:39 Assessment Mental Status: Awake (Alert & Oriented to Patient Baseline) Airway and Respiratory Function: Patent airway with normal (patient baseline) respiratory exam Cardiovascular Function: Hemodynamically Stable Hydration Status: Adequately Hydrated Nausea & Vomiting: No Nausea or Vomiting Pain: Pt. Denies Any Pain Peripheral Nerve Block: Patient did not receive a nerve block Postoperative Comments:: Spinal in place and following appropriate course. Educated to usual course and how to contact anesthesia if any concerns or questions.
[2022-06-17] MEDS: Docusate Sodium 100 MG CAP PO ×2 (08:12→19:33)
[2022-06-17] MEDS: NALBUPHINE 5 MG in Normal Saline 50 ML 100 MG IVPB (08:13)
[2022-06-17] MEDS: Lactated Ringers 1,000 ML 120 ML IV (08:25)
[2022-06-17] MEDS: Ketorolac 30 MG/ML VIAL IVP ×3 (09:27→21:40)
[2022-06-17] MEDS: Normal Saline Flush 10 ML SYR IVP ×3 (09:28→15:40)
[2022-06-17] MEDS: diphenhydrAMINE 50 MG/ML VIAL 25 MG IVP ×2 (09:35→21:42)
[2022-06-18 00:09] VITALS: BP 122/81; PULSE 78; TEMP 36.8
[2022-06-18 03:35] VITALS: BP 124/75; PULSE 74; RESP 16; TEMP 37
[2022-06-18] MEDS: Ibuprofen 600 MG TAB PO ×2 (03:37→09:48)
[2022-06-18] MEDS: Acetaminophen 325 MG TAB 650 MG PO (07:48)
[2022-06-18] MEDS: Docusate Sodium 100 MG CAP PO (07:50)
--- NOTE | 2022-06-18 08:14 | W.PM.OBDISCH ---
Date of service: 06/18/22 Time of Service: 08:14 DS: Diagnosis Discharge Diagnosis (1) Postmaturity , 40-42 weeks gestation: Status: Acute (2) GDM (gestational diabetes mellitus), class A1: Status: Acute (3) Hx of section: Status: Chronic Discharge Plan Disposition Patient Disposition: Home Condition: Good Discharge Details Reason For Visit: Induction Admit Date/Time: 06/15/22 19:00 Admit Provider: Alexis Boogie Attending Provider: Alexis Boogie Hospital Course Hospital Course: Pt presented for post-dates induction 06/15/22 and progressed to 5cm, then underwent SROM early in the morning of 06/17/22 and was found to have compound presentation with the baby's arm over it's head.? She underwent a primary low transverse delivery with delivery of a viable male infant weighing 7lb2oz . Apgars 5/8/9. His parents intend to name him Courage. Pt's postop course was uncomplicated she was discharged home on postop day #1 successfully breast-feeding, tolerating her regular diet and using [id number] analgesics for pain relief. The plan is to see the patient back at the [facility] for a incision check in approximately a week. She was given discharge instructions regarding activity level and when to call the [facility] on-call provider Home Meds and New Rx's Prescriptions: No Action No Known Home Meds Discharge Instructions Additional Instructions: Call [phone] and asked to speak to the on-call provider if you find that you are experiencing pain not relieved by ibuprofen and acetaminophen. Please have an appointment with Dr. Ross at the [facility] in one week for an incision check. Stand Alone Forms: BC Instructions, BC Discharge Instruc Activity:: No lifting over 10 pounds Equipment/Supplies:: No Equipment Needed Diet:: As Tolerated Discharge Orders Discharge Orders: Discharge Order (Routine); Ordered 06/18/22 Ordered By: Soraya Evans OB:DS Summary Summary Delivery Method: Primary Contraception Discussed Contraception Discussed: No, Infant Gender-Baby A: Male weight: 7 lb 2.24 oz Status at Discharge Functional status at discharge: independent ambulation Overall status at discharge: patient is progressing back to baseline Mental Status: mental status grossly normal Speech and Movement: speech and movement normal Mood: congruent mood Affect: normal affect Exam Physical Exam Vital signs: Temp Pulse Resp BP Pulse Ox 98.6 F 74 16 124/75 96 06/18/22 03:35 06/18/22 03:35 06/18/22 03:35 06/18/22 03:35 06/17/22 19:30 Vital Signs Reviewed: Yes Constitutional Constitutional: no acute distress HEENT Exam HEENT Exam: Normal Neck Exam Neck Exam: Normal Respiratory Exam Respiratory Exam: Normal Cardiovascular Exam Cardiovascular Exam: Normal Abdominal Exam Abdomen: Other (No erythema, no ecchymosis) Comments: no focal abdominal tenderness Fundal Exam Fundus: Below Umbilicus Rectal Exam Rectal Exam: Not Done Extremities Exam Extremity Exam: Normal Back/Spine/Pelvis Exam Back Exam: Not Done Skin Exam Skin Exam: Normal (Abdominal dressing remains in place. RN will remove it prior to discharge) Neurological Exam Neurological Exam: Normal Psychiatric Exam Psychiatric Exam: Normal PFSH All Active Problems (Updated 06/15/22 @ 21:12 by Alexis Boogie) Hx of section (Chronic) Postmaturity , 40-42 weeks gestation (Acute) GDM (gestational diabetes mellitus), class A1 (Acute) Surgical History (Updated 06/18/22 @ 08:15 by Soraya Evans MD) History of hernia repair Social History Smoking/Tobacco Use Status: Never Smoking risk assessment performed?: Yes Substance use type: does not use Do you feel safe at home: Yes Do you feel safe in your relationship?: Yes History History 8 Para 5 Hx # Term Pregnancies Multiple births Hx # Pregnancies Ectopic pregnancies AB induced Hx Number of Living Children AB spontaneous DS: Data Vitals/I&O Vitals and I&O: Vital Signs Temperature 98.6 F 06/18/22 03:35 Pulse 74 06/18/22 03:35 Pulse Rhythm Regular 06/17/22 19:30 Respiratory Rate 16 06/18/22 03:35 Respiratory Depth Normal 06/17/22 19:30 Blood Pressure 124/75 06/18/22 03:35 Blood Pressure Mean 91 06/18/22 03:35 Pulse Oximetry 96 06/17/22 19:30 Oxygen Delivery Method Room Air 06/15/22 19:50 Oxygen Flow Rate 0 06/15/22 19:50 Pain Level 3 06/18/22 07:48 Comment Pt standing. 06/16/22 10:00 Intake & Output 06/17/22 06/17/22 06/18/22 11:59 23:59 11:59 Intake Total 1336.867 / 1387.367 50.5 / 7062.029 4247 / 1000 Output Total 1250 / 2450 1200 / 2450 2100 / 2100 Balance 86.867 / -1062.633 -1149.5 / -1062.633 -1100 / -1100 Weight 230 lb Intake: IV 1336.867 / 1387.367 50.5 / 7426.416 0259 / 1000 Output: Urine 450 / 1650 1200 / 1650 2100 / 2100 Estimated Blood Loss 800 / 800 Other: Urine Color Yellow Yellow Yellow Urine Appearance Clear Clear Urine Odor None Comment geller in place first spontaneous void after catheter removal Voiding Methods Toilet Data Completed and Pending Labs on day of discharge: Labs from last 24 hours 06/17/22 06/15/22 14:10 20:57 Patient ABO/Rh B Negative Antibody Screen POSITIVE Antibody Identification Anti-D Screen Pending [facility] Unit Number [id number] Unit Expiration Date 05/07/2023 Product Lot # [id number]
[2022-06-18 09:30] VITALS: BP 131/87; PULSE 91; RESP 16; TEMP 36.8
== END 2022-06-18 11:20 | disposition home or self-care (01) | DRG 788 ==
PROVIDERS: Obstetrics & Gynecology; Admitting Provider Family Medicine; Visit Provider Family Medicine
PROC: 10D00Z1 Extraction of Products of Conception, Low, Open Approach (ICD-10-PCS; CPT 59514; principal; 2022-06-17 02:00)
DX: O48.0 Post-term pregnancy (principal); Z37.0 Single live birth; O24.420 Gestational diabetes mellitus in childbirth, diet controlled; O76 Abnormality in fetal heart rate and rhythm complicating labor and delivery; O32.6XX0 Maternal care for compound presentation, not applicable or unspecified; Z3A.40 40 weeks gestation of pregnancy
CPT/HCPCS: 59514; 36415; 85027; 85461; 86850; 86900; 86901; 87635; 90384; 59025; 86870; G0378; J0131; J0456; J0690; J1200; J1885; J2405; J2704; J2790; J3490

== ENCOUNTER 2024-09-14 17:40 | Emergency (ER) | payer OTHER, SELFPAY ==
[2024-09-14 17:43] VITALS: BP 112/73; PULSE 96; RESP 18; TEMP 36.9; O2SAT 97
--- NOTE | 2024-09-14 18:53 | W.ED.GENAD ---
Discharge Plan Disposition Patient Disposition: Eloped Condition: Stable Discharge Details Clinical Impression: Superficial thrombophlebitis of right leg Primary Care Provider: Unknown,Unknown ED Provider: Yonatan Ruff Home Meds and New Rx's Prescriptions: No Action No Known Home Meds Discharge Instructions Instructions: Superficial vein phlebitis and thrombosis Additional Instructions: You were seen in the emergency department for the chronic varicosities with a palpable superficial clot behind your knee on the right leg, you have some mild swelling of your lower extremity but your physical exam is reassuring for no DVT, POCUS exam showed collapsible popliteal vein and getting nonocclusive likely superficial thrombophlebitis in this area and your D-dimer is negative and well below threshold to suspect DVT in patient, we engaged in shared decision making and we will forego anticoagulation but still recommend you get a formal ultrasound on Tuesday or Tuesday from your primary provider. Patient eloped prior to D-dimer result, and prior to receiving paperwork while I was dictating it and going to give D-dimer results at that time. HPI General Date/Time Provider Initiated Documentation: 09/14/24 17:47. HPI Narrative: 39 year-old female presents to ED today by POV/ambulating with a chief complaint of R leg swelling, pain, varicosities, feels she may have superficial clot or DVT in R lower extremity with onset the past few days. Patient has history of superficial clots. Quality described as generalized R leg swelling and pain, no radiation to calf pain with dorsiflexion, severe unilateral leg swelling, skin color changes, medial thigh pain. Severity is described as moderate. Palliating factors include has been using compression wraps at home. Provoking factors include nothing specific. Events leading up to the incident/Associated Symptoms: Patient is 29 weeks gestation with her 7th child. Patient not anticoagulated. Related Data Home Medications ?Medication ?Instructions ?Recorded ?Confirmed Unknown [No Known Home Meds] 06/15/22 09/14/24 Allergies Allergy/AdvReac Type Severity Reaction Status Date / Time No Known Allergies Allergy Unverified 09/14/24 17:44 General Stated Complaint: Vascular SERGEI: 3 Review of Systems All systems reviewed & are unremarkable except as noted in HPI and below Exam Narrative Exam Narrative: GENERAL APPEARANCE: Well-nourished, non-toxic, awake and alert, atraumatic, no acute distress. SKIN: Warm, pink, dry, intact, without rashes/lesions/ulcerations. HEAD: Normocephalic, atraumatic, normal hair distribution for gender/age. EYES: Normal conjunctiva, no exudates on lids/lashes. ENT: Nares patent, no circumoral cyanosis, no facial swelling NECK: Supple, trachea midline, painless cervical ROM. LUNGS/CHEST: Non-labored respirations, normal A/P diameter, symmetrical expansion, no chest wall deformity HEART (CV/PV): Regular rate, R dorsalis pedis pulse 2+, no peripheral edema, no JVD. ABDOMEN: Soft, non-distended, no guarding. MSK: Normal ROM, no swelling/deformity to bilateral UEs or LEs, moving all extremities without weakness, no cyanosis, spine midline without tenderness, normal curvature. R LE: Chronic varicosities with a palpable nodular swelling in the popliteal fossa likely a superficial thrombophlebitis, Homans negative, no medial thigh tenderness, no gross unilateral leg swelling, no skin changes in the distal lower extremity, pedal pulse intact NEURO: Mental Status AAOx4 - alert to person, place, time, events No facial droop, no forehead involvement. Motor: No focal weakness - strength 5/5 in bilateral UEs and LEs, proximal and distal, symmetric. Sensory: sensation intact to light touch globally. Gait normal: patient ambulated without ataxia into ED room. PSYCH: euthymic, cooperative, pleasant, appropriate speech Course Vital Signs Vital signs: Vital Signs Temperature 36.9 C 09/14/24 17:43 Pulse 96 H 09/14/24 17:43 Respiratory Rate 18 09/14/24 17:43 Blood Pressure 112/73 09/14/24 17:43 Pulse Oximetry 97 09/14/24 17:43 Temperature 36.9 C 09/14/24 17:43 Temperature Source Oral 09/14/24 17:43 Pulse 96 H 09/14/24 17:43 Respiratory Rate 18 09/14/24 17:43 Blood Pressure 112/73 09/14/24 17:43 Pulse Oximetry 97 09/14/24 17:43 Medical Decision Making This dictation utilizes [id number] dictation software and may contain unedited grammatical errors. 39 year-old female presents to ED today by POV/ambulating with a chief complaint of R leg swelling, pain, varicosities, feels she may have superficial clot or DVT in R lower extremity with onset the past few days. Patient has history of superficial clots. Quality described as generalized R leg swelling and pain, no radiation to calf pain with dorsiflexion, severe unilateral leg swelling, skin color changes, medial thigh pain. Severity is described as moderate. Palliating factors include has been using compression wraps at home. Provoking factors include nothing specific. Events leading up to the incident/Associated Symptoms: Patient is 29 weeks gestation with her 7th child. Unknown staff at [facility] directed her to [facility] despite ultrasound not being present for send ultrasound of right lower extremity for DVT. Patients' medical history: Gestational diabetes. Family and social history: Noncontributory. Pertinent exam findings / vital signs include diffuse varicosities to right lower extremity, Homans negative, no medial thigh tenderness, no unilateral leg swelling greater than 2 cm at tibial tuberosity, no skin changes, neurovascular intact distal, there is a palpable superficial clot in the popliteal fossa. Differential / pathologies of concern include superficial thrombophlebitis, DVT. Diagnostic studies of: - D-dimer, POCUS performed by Dr. Sneed. - D-dimer 841, years criteria negative and well below established threshold for patients - POCUS shows collapsible popliteal, do not suspect DVT at this time, no other clots seen Interventions of: - Discussed results with patient, we will forego anticoagulation, recommend continuing of compression wraps and follow-up with a formal outpatient ultrasound at [facility] on Tuesday or Tuesday. ED Course/Assessment/Plan: 39-year-old female 29 weeks gestation with her seventh child presents with chronic varicosities of lower extremities, worse on the right with some pain and swelling, has been treating at home with compression wraps, has a palpable superficial clot behind her knee on the right leg but Homans is negative and has no medial thigh tenderness or severe skin changes to the lower extremity suggesting vasculopathy. POCUS exam was performed by Dr. Salinas and showed a compressible popliteal vein as well as no other DVTs see his procedure note, patient was reassured by this and was advised to wait for D-dimer result but eloped before receiving D-dimer result or paperwork, our recommendation was going to be to wait on anticoagulating until a formal study could be performed early next week. Findings not consistent with DVT, neurovascular compromise, cellulitis. Disposition of Superficial Thrombophlebitis of Right Leg. Patient verbalized understanding of the plan and return to ED criteria and engaged in shared decision making. Medical Records Medical records reviewed: Yes I reviewed the patient's medical records. Lab Data Lab results reviewed: Yes I reviewed the patient's lab results. Labs: Laboratory Tests Range/Units 09/14/24 18:30 D-Dimer (<500) ng/mlFEU 841 H Quality:SDOH Health Related Social Needs: No Data to Display PFSH All Active Problems (Updated 09/14/24 @ 19:19 by RANDY Lee) Superficial thrombophlebitis of right leg (Acute) Hx of section (Acute) 06/17/22. pLTCS for hand presentation during IOL for postdates and gestational diabetes. M. 7lb2oz. Apgars 5/8. Courage Postmaturity , 40-42 weeks gestation (Acute) GDM (gestational diabetes mellitus), class A1 (Acute) Surgical History (Updated 06/18/22 @ 09:23 by Soraya Evans MD) History of hernia repair Social History Smoking/Tobacco Use Status: Never Smoking risk assessment performed?: Yes Alcohol Intake: never Substance use type: does not use Do you feel safe at home: Yes Do you feel safe in your relationship?: Yes History History 8 Para 5 Hx # Term Pregnancies Multiple births Hx # Pregnancies Ectopic pregnancies AB induced Hx Number of Living Children AB spontaneous
[2024-09-14 19:07] LABS: D-Dimer 841 ng/mlFEU (<500)
--- NOTE | 2024-09-14 21:24 | ED.PROG_ITS ---
Date of service: 09/14/24 Time of Service: 17:45 Medical Decision Making I was asked to assist with performing a bedside ultrasound, patient was having tenderness in the heart lump in the posterior knee. It was not visible DVT in the right popliteal region. Quality:SDOH Health Related Social Needs: No Data to Display Discharge Plan Disposition Patient Disposition: Eloped Condition: Stable Discharge Details Clinical Impression: Superficial thrombophlebitis of right leg Primary Care Provider: Unknown,Unknown ED Provider: Yonatan Ruff Home Meds and New Rx's Prescriptions: No Action No Known Home Meds Discharge Instructions Instructions: Superficial vein phlebitis and thrombosis Additional Instructions: You were seen in the emergency department for the chronic varicosities with a palpable superficial clot behind your knee on the right leg, you have some mild swelling of your lower extremity but your physical exam is reassuring for no DVT, POCUS exam showed collapsible popliteal vein and getting nonocclusive likely superficial thrombophlebitis in this area and your D-dimer is negative and well below threshold to suspect DVT in patient, we engaged in jethro ed decision making and we will forego anticoagulation but still recommend you get a formal ultrasound on Tuesday or Tuesday from your primary provider. Patient eloped prior to D-dimer result, and prior to receiving paperwork while I was dictating it and going to give D-dimer results at that time. POCUS Exam (ED) Limited Vascular Exam Vascular Exam: Right lower extremity REASON FOR EXAM: Concern for DVT right lower extremity Exam Complete INCIDENTAL FINDINGS: No evidence of DVT
== END 2024-09-14 19:26 | disposition left against medical advice (07) ==
PROVIDERS: Emergency Provider Physician Assistant
DX: O22.23 Superficial thrombophlebitis in pregnancy, third trimester (principal); I80.01 Phlebitis and thrombophlebitis of superficial vessels of right lower extremity; O09.523 Supervision of elderly multigravida, third trimester; Z3A.29 29 weeks gestation of pregnancy
CPT/HCPCS: 00123; 36415; 93971; 99284; 85379